=== PATIENT | male | born 1955 | race Caucasian/White ===

== ENCOUNTER 2020-05-22 13:20 | Outpatient (CLI) | payer MEDICARE, OTHER, SELFPAY ==
--- NOTE | ~2020-05-22 | CT_ITS ---
EXAMINATION: CT IAC/mastoids BI wo con EXAM DATE: 05/22/2020 13:45 INDICATION: H60.91 - Unspecified otitis externa, right ear. TECHNIQUE: Spiral CT of the internal auditory canals was performed without contrast. Axial and edwina nal images were reviewed. The dose-length product (DLP) for this examination was 316.59 mGy-cm. The exposure was tailored according to patient size, and iterative reconstruction (ASIR) was used as add itional dose reduction technique. There is no prior study for comparison. FINDINGS: RIGHT side: There is small amount of soft tissue density thickening along the external auditory canal which should be evaluated by direct visualization. Overall caliber of the external auditory canal is diminished compared to the contralateral side. There is completely opacified middle ear, however the ossicular chain appears intact and without erosion. Scutum also appears intact. There is thin but in tact tegmen tympani. 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 The cochle a and semicircular canals are normal in appearance. Internal auditory canal is normal in appearance and symmetric compared to contralateral side. LEFT side: The middle ear is well aerated. The mastoid air cells are well aerated but small in size/ number, likely congenitally under pneumatized. The seventh cranial nerve has a normal course. The s cutum is intact. The ossicles are normal in appearance. The cochlea and semicircular canals are nor mal in appearance. Internal auditory canal is normal in appearance and symmetric compared to contral ateral side. IMPRESSION: 1. Thickening, narrowed right external auditory canal. 2. Opacified right middle ear, mastoid air cells without erosions. Reviewed, dictated and finalized at location A. [facility]ATION ARCHITECT
== END 2020-05-22 13:21 | disposition home or self-care (01) ==
PROVIDERS: PCP Family Medicine Sports Medicine; Visit Provider Otolaryngology
DX: H60.91 Unspecified otitis externa, right ear (principal); H66.91 Otitis media, unspecified, right ear
CPT/HCPCS: 70480

== ENCOUNTER → 2020-06-30 00:30 | Outpatient (CLI) | payer MEDICARE, OTHER, SELFPAY ==
[2020-06-30 19:08] LABS: SARS-CoV-2 RNA PCR Negative
== END ==
PROVIDERS: PCP Family Medicine Sports Medicine; Visit Provider Otolaryngology
DX: Z01.812 Encounter for preprocedural laboratory examination (principal); Z20.822 Contact with and (suspected) exposure to COVID-19
CPT/HCPCS: C9803; U0003; U0005

== ENCOUNTER 2020-06-30 08:45 | Outpatient (CLI) | payer MEDICARE, OTHER, SELFPAY ==
--- NOTE | 2020-06-30 08:52 | ECG_ITS ---
Measurements Intervals [place] Rate: 57 P: 5 PA: 192 QRS: 16 QRSD: 105 T: 20 QT: 381 QTc: 373 Interpretive Statements SINUS BRADYCARDIA DELAYED PRECORDIAL R/S TRANSITION BASELINE ARTIFACT- I, II, III, AVR, AVL, AVF BORDERLINE ECG Electronically Signed On 06-30-2020 9:04:09 PIN PUSHER by Esteban Carbajal D.O.
== END 2020-06-30 08:46 | disposition home or self-care (01) ==
PROVIDERS: PCP Family Medicine Sports Medicine; Visit Provider Otolaryngology
DX: Z01.810 Encounter for preprocedural cardiovascular examination (principal); R00.1 Bradycardia, unspecified; I10 Essential (primary) hypertension
CPT/HCPCS: 93005; C9803; U0003; U0005

== ENCOUNTER 2020-07-03 00:20 | Day surgery (SDC) | payer MEDICARE, OTHER, SELFPAY ==
[2020-06-26 08:16] VITALS: BMI 31.4
--- NOTE | 2020-07-02 14:19 | PM.IMHP ---
H&P: HPI History of Present Illness Date/Time: 07/02/20 14:19 Chief Complaint: Septal deviation, inferior turbinate hypertrophy, nasal obstruction, right-sided eustachian tube dysfunction Narrative: Ralph Ma is a 65 year old male Who presents for planned surgical procedures. Reports no new symptoms or changes in his history. Review of Systems Constitutional: Constitutional: Denies fatigue, Denies fever(s) and Denies lethargy Eyes: Eyes: Denies blurry vision and Denies change in vision ENT: Reports as per HPI Cardiovascular: Cardiovascular: Denies chest pain Respiratory: Respiratory: Denies cough Endocrine: Endocrine: Denies fatigue Hematologic/Lymphatic: Hematologic/Lymphatic: Denies easy bleeding, Denies easy bruising and Denies lymphadenopathy Allergic/Immunologic: Allergic/Immunologic: Denies seasonal rhinorrhea [facility] Social History Social History Smoking packs per day: 1.5 Smoking cigarettes per day: 30.0 Years smoked: 25 Smoking pack-years: 37.50 Smoking status: Former smoker Tobacco type: cigarettes Second hand tobacco smoke exposure: Yes Smoking end date: 03/05/10 Additional smoking assessment comments: [place] QUIT 2010 Alcohol intake: current Drinks per week: 24 Substance use: never Substance use type: does not use Spiritual care concerns: No Meds Home Medications and Allergies Home Medications Medication Instructions Recorded Confirmed Type amlodipine 5 mg tablet 10 mg PO DAILY 11/21/19 06/30/20 History atorvastatin 20 mg tablet 20 mg PO QAM 11/21/19 06/26/20 History cetirizine 10 mg tablet 10 mg PO DAILY 11/21/19 06/26/20 History guaifenesin 600 mg tablet, 600 mg PO Q12H PRN 06/01/20 06/26/20 History extended release 12 hr ipratropium bromide 2 spray INTRANASAL TID 06/26/20 06/26/20 History Allergies Allergy/AdvReac Type Severity Reaction Status Date / Time ofloxacin AdvReac Mild Hives Verified 06/26/20 08:12 Exam Const: General: cooperative, healthy appearing, comfortable, well developed and alert HENMT: Head: normal to inspection, normocephalic and atraumatic Ears: hearing grossly normal bilaterally, external ears normal, right TM abnormal ( Tube in place otorrhea), TM normal on the left and EAC's normal General nose exam: Normal external nose present, Normal nares present, No nasal polyps present, mucous membranes and turbinates abnormal, abnormal septum and Other nasal findings present ( septal deviation inferior turbinate hypertrophy) Face and sinus: normal facial exam Mouth: Yes Normal oral and palatal mucosa present, Yes lip normal, Yes tongue normal, Yes oropharynx normal and Yes moist mucous membranes Teeth and gingiva: dentition normal and gingiva normal Throat: posterior oropharynx normal, tonsils normal and uvula midline Eyes: General: appearance normal, both eyes and all related structures Periorbital: periorbital findings normal Eyelids: eyelids normal Conjunctivae: conjunctivae normal Sclera: sclerae normal Neck: Neck: normal visual inspection, full ROM and no lymphadenopathy Thyroid: thyroid normal Lymphatic: no lymphadenopathy noted Resp: Effort & Inspection: normal respiratory effort and able to speak in complete sentences Cardio: Jugular venous distension: no JVD Neuro: Cranial nerves: Yes CN's II-XII intact bilaterally Assessment and Plan Assessment and plan (1) Hypertrophy of both inferior nasal turbinates: Code(s): J34.3 - Hypertrophy of nasal turbinates Status: Acute Assessment and Plan: plan is for the OR for endoscopic assisted septoplasty and inferior turbinate reduction as well as right-sided eustachian tube balloon dilation. The risks were discussed including septal perforation blindness damage to brain CSF leakage the need for further procedures carotid injury and stroke. The patient voiced understanding of these risks and agreed.
[2020-07-03] VITALS (7 sets, daily range): BP systolic 106–161; BP diastolic 58–76; PULSE 43–52; RESP 12–20; TEMP 36.2; O2SAT 96–99
--- NOTE | 2020-07-03 06:58 | WPDHPUPDATE1 ---
History and Physical Update Update Date/Time: 07/03/20 06:58 History and Physical has been reviewed, including an updated exam of the patient. There are NO changes in the patient's condition. Risks, benefits, and alternatives have been discussed and questions answered. Patient agrees to proceed with procedure.
[2020-07-03] MEDS: ACETAMINOPHEN 500 MG TABLET 1000 MG PO (08:21)
[2020-07-03] MEDS: LACTATED RINGERS 1,000 ML 30 ML IV CONT (08:22)
--- NOTE | 2020-07-03 08:31 | WPDANESEPPF ---
Anes - Initial Pre Proc Eval Procedure: Operation Date: 07/03/20 10:00 Proposed Procedures p Septoplasty, Bilateral Inferior Turbinectomy, - Aubrey Lobo MD s Eustachian Tube Dilation - Aubrey Lobo MD Date/Time: 07/03/20 08:31 Surgeon: Aubrey Lobo MD Pre Op Diagnosis: right eustachian tube dysf, nasal septal deviation Patient Data Age: 65 Gender: M Height: 5 ft 9.5 in Weight: 97.72 kg Allergies Allergy/AdvReac Type Severity Reaction Status Date / Time ofloxacin AdvReac Mild Hives Verified 06/26/20 08:12 Home Medications Medication Instructions Recorded Confirmed Type amlodipine 5 mg tablet 10 mg PO DAILY 11/21/19 06/30/20 History atorvastatin 20 mg tablet 20 mg PO QAM 11/21/19 06/26/20 History cetirizine 10 mg tablet 10 mg PO DAILY 11/21/19 06/26/20 History guaifenesin 600 mg tablet, 600 mg PO Q12H PRN 06/01/20 06/26/20 History extended release 12 hr ipratropium bromide 2 spray INTRANASAL TID 06/26/20 06/26/20 History Patient hx anesthesia problems: none Family hx anesthesia problems: none PMFSH Past Medical History Medical History Hyperlipidemia Hypertension GONZALEZ (obstructive sleep apnea) Social History Social History Smoking packs per day: 1.5 Smoking cigarettes per day: 30.0 Years smoked: 25 Smoking pack-years: 37.50 Smoking status: Former smoker Tobacco type: cigarettes Second hand tobacco smoke exposure: Yes Smoking end date: 03/05/10 Additional smoking assessment comments: STATES QUIT 2010 Alcohol intake: current Drinks per week: 24 Substance use: never Substance use type: does not use Living arrangements: with family Spiritual care concerns: No Anes - Eval Final PreProcedure Day of Procedure 07/03/20 08:31 Patient weight: obese Heart: regular rate and rhythm Lungs: decreased breath sounds Airway: Mallampati scale class III Neurological: alert and oriented Last oral intake: >/= 8 hours ASA classification: III Emergent: no Anesthetic plan: proceed Anesthesia type and monitoring: general ETT and standard monitoring Informed Consent: The patient's anesthetic plan and its attendant risks and benefits were discussed with the patient/family/POA. Questions were solicited and answers provided to the satisfaction of the patient/family/POA.
[2020-07-03] MEDS: LIDO 1%/EPINEPHRINE 1:100,000 50 ML VIAL INFILTRATE (08:50)
[2020-07-03] MEDS: OXYMETAZOLINE HCL 0.05% NAS 15 ML BTL (*BKC) 1 SPRAY NASAL (08:50)
--- NOTE | 2020-07-03 10:25 | PM.PROC ---
Procedure Note - Detailed Date of procedure: 07/03/20 Pre-op diagnosis: right eustachian tube dysf, nasal septal deviation Inferior turbinate hypertrophy Post-op diagnosis: same Procedure performed: 1. Nasal endoscopy with right-sided eustachian tube balloon dilation 2. Endoscopic assisted septoplasty 3. Bilateral inferior turbinate reduction with outfracture Description of procedure: The patient was correctly identified and consent was verified in the preoperative holding area. The patient was then brought to the operative time-out was performed. General anesthesia was induced and endotracheal tube secured the patient's airway and taped to the left lower lip. Nasal endoscopy was then performed following application of Afrin-soaked pledgets for 5 minutes. The nasal septum was mostly deviated to the left. The 0 degree endoscope as well as balloon were inserted in the right nasal passage in utilized to dilate the eustachian tube for 2 minutes. This was performed without complication. At 6 cc 1% lidocaine with 1 100,000 parts epinephrine was then injected into the anterior portions of the inferior turbinates as well as the bilateral nasal septum in the sub mucoperichondrial plane. A Yonny type incision was made with a 15 blade and dissection of the left-sided mucoperichondrial flap was performed with a 7 Danish suction and caudal elevator. The septum was then crossed and a right-sided mucoperichondrial flap was elevated. Deviated portions of the nasal septum removed with osteotome as well as [place] Meyer forceps. Left-sided perforation was noted. The right side was completely intact. The anterior nasal septum was then sutured using a 250 interrupted fast gut sutures. The anterior portion of the inferior turbinates were entered using the microdebrider with turbinate blade and reduced in the sub mucoperichondrial plane submucosal plane. These were then outfractured. Joshua splints were applied bilaterally and sutured anteriorly with a 3 0 nylon suture. Hemostasis was of excellent. This marked the end of the procedure. Care the patient was turned over to Anesthesiology. I performed all dictated portions. Anesthesia: GLMA Surgeon: Aubrey Lobo MD Complications: No immediate complications Condition: stable Disposition: PACU
[2020-07-03] MEDS: oxyCODONE HCL (*CRX) 5 MG TAB IR PO (11:36)
== END 2020-07-03 11:55 | disposition home or self-care (01) ==
PROVIDERS: PCP Family Medicine Sports Medicine; Visit Provider Otolaryngology
PROC: (CPT 30520; principal; 2020-07-03 10:00)
PROC: (CPT 69705; 2020-07-03 10:00)
DX: H69.91 Unspecified Eustachian tube disorder, right ear (principal); H66.91 Otitis media, unspecified, right ear; J34.2 Deviated nasal septum; J34.3 Hypertrophy of nasal turbinates; J34.89 Other specified disorders of nose and nasal sinuses; I10 Essential (primary) hypertension; E78.5 Hyperlipidemia, unspecified; G47.33 Obstructive sleep apnea (adult) (pediatric); Z87.891 Personal history of nicotine dependence; E66.9 Obesity, unspecified; Z68.30 Body mass index [BMI] 30.0-30.9, adult
CPT/HCPCS: 69705; 30520; 30140; A9270; J0330; J0690; J1100; J2405; J2704; J3010; J7120